=== PATIENT | female | born 1985 ===

== ENCOUNTER 2018-05-19 15:32 | Emergency (ER) | payer SELFPAY ==
[~2018-05-19] VITALS: Ht 175.3 cm; Wt 66.2 kg
[2018-05-19 15:42] VITALS: BP 106/60
[2018-05-19] MEDS ORDERED: DEXAMETHASONE 4 MG TABLET ONE (16:27)
[2018-05-19] MEDS ORDERED: DEXAMETHASONE 4 MG TABLET PO ONE (16:30)
== END 2018-05-19 17:17 | disposition home or self-care (01) ==
LOC: ED 17:15
DX: B34.9 Viral infection, unspecified (principal)
CPT/HCPCS: 36415; 86308; 87081; 87880; 99283